=== PATIENT | male | born 1980 | race Caucasian/White ===

== ENCOUNTER 2024-02-26 11:21 | Emergency (ER) | payer SELFPAY ==
--- NOTE | 2024-02-26 11:24 | ED.GENMED ---
ED Provider Triage
<Betina Toledo PA-C - Last Filed: 02/26/24 11:27>
-
Patient seen by provider in Triage?: Seen in Triage
Attestation: A medical screening examination has been initiated by a qualified medical provider. Based on the assessment performed at this time, it has been determined that an emergent medical condition may exist and the patient has been informed
that further medical evaluation and possible additional diagnostic testing may be needed.
HPI: 43yoM here after stepping into his dump truck 2-3 hours. [place] a pop in his groin region. C/o R inner thigh, R testicle, and lower abd pain.
GENERAL: Alert , in no apparent distress
EYE: No visual abnormalities.
NECK: Trachea midline
ENT: No visible abnormalities.
LUNGS: No acute respiratory distress
NEUROLOGICAL: Alert and oriented
SKIN: Skin intact. No visible changes.
MUSCULOSKELETAL: Moving extremities normally
PSYCH: Normal and appropriate interaction.
This is a medical evaluation conducted in person to initiate diagnostic evaluation and provide initial therapeutics. Please see further documentation by the treating clinician.
R hip x-rays ordered.
History of Present Illness
<Betina Toledo PA-C - Last Filed: 02/26/24 11:27>
General
Chief Complaint: Musculo-Skeletal Complaint
Time Seen by Provider: 02/26/24 12:46
<Kevin Sanders DO - Last Filed: 02/26/24 16:18>
History of Present Illness
History of Present Illness:
TIME OF INITIAL ENCOUNTER: 12:45 PM
HPI:
The patient was stepping up into a dump truck today and had abrupt onset severe excruciating right thigh pain that radiates to the abdomen and right testicle. He reports that the testicle is tender to palpation as well. He did not have pain before
this injury today.
EXAM:
GENERAL: Well appearing but appears to be in moderate distress as he has trouble finding a comfortable position, elevated BMI, he is hypertensive
CERVICAL SPINE: Excellent AROM
HEAD: No evidence of craniofacial trauma
CHEST: No chest wall tenderness, normal heart sounds
LUNGS: Equal lung sounds, no respiratory distress
ABDOMEN: No peritoneal signs, very minimal lower abdominal discomfort with palpation
: Mild right-sided testicular tenderness
EXTREMITIES: Decreased active range of motion at the right lower extremity, medial mid thigh tenderness, no evidence for cellulitis
NEURO: Excellent strength all extremities, appropriate mental status, normal speech/language
NUMBER AND COMPLEXITY OF PROBLEMS ADDRESSED AT THE ENCOUNTER
� Chronic conditions affecting care: Is a smoker, high blood pressure
� Acute Exacerbation and/or Progression of Chronic Illness: This is an acute problem
� Differential Diagnosis includes: Hip flexor tear, thigh muscle tear/strain, testicular torsion possible but unlikely
AMOUNT AND/OR COMPLEXITY OF DATA TO BE REVIEWED AND ANALYZED
� I performed an independent evaluation of and my interpretation is:
EKG:
CT:
X-rays: X-rays of the pelvis and right hip are unremarkable
Laboratory Studies:
Other: Testicular ultrasound unremarkable
� Review of other/old records: The patient was seen here in 2020 with a dental abscess
� Clinical information was obtained by an independent historian: None needed
� Prescriptions/Medications Considered but not given:
� Further testing considered but not performed:
RISK OF COMPLICATIONS AND/OR MORBIDITY OR MORTALITY OF PATIENT MANAGEMENT
� Social determinants of health affecting care: Lives at home
� Discussion with other providers:
� Escalation of care including admission/observation vs risk of discharge considered: The patient did take tramadol earlier today. I have ordered a dose of Toradol IM. Plain film imaging unremarkable�will obtain ultrasound of
the testicle as well.
ANY OTHER UPDATES:
4:15 PM: The patient was febrile earlier and did receive Toradol. Temperature has improved. Testicular ultrasound, plain film imaging, and urinalysis unremarkable. The patient also reported some ear discomfort and we talked about the possibly of
a viral syndrome. I have also given the contact information for orthopedics to follow-up with given the ongoing rather severe pain at the right thigh.
Past History
<Betina Toledo PA-C - Last Filed: 02/26/24 11:27>
Past History
ED Past Medical History: None
ED Past Surgical History: None
Social History
Tobacco: Non-smoker
Alcohol: None
Drug: None
Phy Exam
<Kevin Sanders DO - Last Filed: 02/26/24 16:18>
Physical Exam
Physical Exam:
See HPI
Course
<Betina Toledo PA-C - Last Filed: 02/26/24 11:27>
Orders/Labs/Results
Orders:
Orders
02/26/24 11:27
Hip, Right 2-3 Views [CR Hip - RT w/wo Pel 2-3 Vw*] Urgent
Comment:
Reason For Exam: pain
Include a pelvis x-ray?: Yes
02/26/24 12:58
Ketorolac [Toradol] 30 mg IM NOW STA
US Scrotum Urgent
Comment:
Reason For Exam: R testic pain
02/26/24 14:15
Urinalysis Reflex To Culture Urgent
Date Specimen was Collected: 02/26/24
Time Specimen was Collected: 14:13
Vital Signs
Initial and Last Documented VS:
Initial Vital Signs
Temp Pulse Resp BP Pulse Ox
98.5 F 101 16 182/116 98
02/26/24 11:25 02/26/24 11:25 02/26/24 11:25 02/26/24 11:25 02/26/24 11:25
Last Documented Vital Signs
Temp Pulse Resp BP Pulse Ox
100.5 F H 108 16 132/78 98
02/26/24 16:09 02/26/24 14:06 02/26/24 14:06 02/26/24 14:06 02/26/24 14:06
<Kevin Sanders DO - Last Filed: 02/26/24 16:18>
Orders/Labs/Results
Orders:
Orders
02/26/24 11:27
Hip, Right 2-3 Views [CR Hip - RT w/wo Pel 2-3 Vw*] Urgent
Comment:
Reason For Exam: pain
Include a pelvis x-ray?: Yes
02/26/24 12:58
Ketorolac [Toradol] 30 mg IM NOW STA
US Scrotum Urgent
Comment:
Reason For Exam: R testic pain
02/26/24 14:15
Urinalysis Reflex To Culture Urgent
Date Specimen was Collected: 02/26/24
Time Specimen was Collected: 14:13
Vital Signs
Initial and Last Documented VS:
Initial Vital Signs
Temp Pulse Resp BP Pulse Ox
98.5 F 101 16 182/116 98
02/26/24 11:25 02/26/24 11:25 02/26/24 11:25 02/26/24 11:25 02/26/24 11:25
Last Documented Vital Signs
Temp Pulse Resp BP Pulse Ox
100.5 F H 108 16 132/78 98
02/26/24 16:09 02/26/24 14:06 02/26/24 14:06 02/26/24 14:06 02/26/24 14:06
<Kevin Sanders DO - Last Filed: 02/26/24 16:18>
*Critical Care Note
Total Time (30-74mins, 75-104mins- exclusive of procedures): Not Applicable
ED Attending Note
<Betina Toledo PA-C - Last Filed: 02/26/24 11:27>
-
Portions of this chart may have been created with voice recognition software.� Occasional wrong word or��sound alike� substitutions may have occurred due to the inherent limitations of voice recognition software.
Discharge Plan
Departure
Patient Disposition: Home (Routine Discharge)
Date of Disposition: 02/26/24
Time of Disposition: 16:15
Patient with high blood pressure during this ER visit?: Yes
Discharge Problem:
Muscle strain of right thigh
Instructions: Muscle Strain ED
Prescriptions:
No Action
amoxicillin-pot clavulanate 1 TABLET tablet
1 tab PO Q12 Qty: 10 0RF
acetaminophen [Tylenol] 325 MG capsule
325 mg PO TID PRN (Reason: Mild pain) Qty: 30 0RF
ibuprofen [Advil Liqui-Gel] 200 MG capsule
200 mg PO TID PRN (Reason: Mod sev pain) Qty: 30 0RF
Referrals:
Mele Sidhu DO [Family Provider] -
Silas Ash MD [Active] - Next open appointment
Activity Restrictions/Additional Instructions:
Take Tylenol and/or ibuprofen for fever. I also recommend the ibuprofen for pain of the left thigh to help decrease inflammation. The urinalysis does not show any signs of infection. Ultrasound of the testicles showed normal blood flow with no
other significant abnormality. X-rays of the right hip and pelvis are unremarkable. I have given the contact information for local orthopedist to follow-up with.
Interventions
Interventions:
*Risk Screen - Suicide Last Done: 02/26/24 11:25
*General Assessment Last Done: 02/26/24 11:25
*Neglect/Abuse Screening Last Done: 02/26/24 11:25
*ED COVID-19 Vaccine History Last Done: 02/26/24 11:48
ED-Musculoskeletal Assessment Last Done: 02/26/24 11:49
Discharge Date and Time
Print Language: YI
[2024-02-26 11:25] VITALS: BP 182/116
[2024-02-26] MEDS: TORADOL 30 MG IM (14:03)
[2024-02-26 14:06] VITALS: BP 132/78; BMI 44.4
[2024-02-26 14:26] LABS: Urine Albumin Negative (Neg - Trace); Urine Bilirubin Negative (Negative); Urine Character Clear (Clear); Urine Color Yellow; Urine Glucose Negative (Negative); Urine Ketone Negative (Negative); Urine Leukocyte Negative (Negative); Urine Nitrite Negative (Negative); Urine Occult Blood Negative (Negative); Urine Specific Gravity 1.015 (<1.030); Urine Urobilinogen Negative (Neg - 1+)
[2024-02-26 16:38] VITALS: BP 126/85
== END 2024-02-26 16:50 | disposition home or self-care (01) ==
LOC: EMR 11:21
PROVIDERS: EMERGENCY PHYSICIAN Emergency Medicine; FAMILY PHYSICIAN Family Medicine
DX: S76.911A Strain of unspecified muscles, fascia and tendons at thigh level, right thigh, initial encounter (principal); N50.82 Scrotal pain; V85.4XXA Person injured while boarding or alighting from special construction vehicle, initial encounter
CPT/HCPCS: 99284; 96372; 73502; 76870; 81003; 93976

== ENCOUNTER 2024-02-28 22:26 | Emergency (ER) | payer OTHER, SELFPAY ==
[2024-02-28 22:27] VITALS: BP 141/109
--- NOTE | 2024-02-28 23:41 | ED.GENMED ---
History of Present Illness
<MISTI Gibson - Last Filed: 02/29/24 06:08>
General
Chief Complaint: Musculo-Skeletal Complaint
Source: patient
Exam Limitations: none
Time Seen by Provider: 02/28/24 23:12
History of Present Illness
History of Present Illness:
Patient is a 43yo M w/ R groin injury dx in ED 2 days ago. Pt injured groin when stepping up into truck and heard/felt a pop. Reports severe medial R thigh pain that radiates into R testicle and lower abd w/ movement. Pt states he was given a pain
med shot in ED, fell asleep for 4 hrs, and discharged. Reports pain slowly came back once he went home. Reports he was told to continue current chronic pain regime (Tramadol & Ibu) and contact PCP for refills. States he has been continuing this
regime, taking more tramadol each day going from 1 to 3 pills, w/o relief. States pain was so severe today that he could not get up from sitting on porch. Reports PCP denied giving him refills. Pain is worst when standing up straight and has
started to radiate into R buttock. Admits to nausea and dizziness w/ certain movements that bring severe pain. Reports dark urine that comes out very slowly x2 days despite drinking 2 gal of water/day. Last BM was 4 days ago but does not have
sensation of needing to go.
Past History
<MISTI Gibson - Last Filed: 02/29/24 06:08>
Past History
ED Past Medical History: None
ED Past Surgical History: None
Social History
Tobacco: Non-smoker
Alcohol: None
Drug: None
Review of Systems
<MISTI Gibson - Last Filed: 02/29/24 06:08>
Review of Systems
Constitutional: Reports fatigue and chills; Denies fever
EENT: Denies sore throat or runny nose
Respiratory: Denies cough or trouble breathing
Cardiac: Denies chest pain or palpitations
ABD/GI: Reports nausea and constipated; Denies abdominal pain, vomiting or diarrhea
: Reports dark urine
Musculoskeletal: Reports muscle pain and muscle stiffness; Denies joint pain or back pain
Neurological: Denies dizzy, headache or numbness
Phy Exam
<MISTI Gibson - Last Filed: 02/29/24 06:08>
General Physical Exam
General Presentation: moderate distress
General age: appears stated age
General Skin: warm and dry
General Habitus: obese
General Mental: alert
Cardiovascular Exam
Cardiovascular Exam: regular rate/rhythm, no edema, no gallop and no murmur
Pulmonary Exam
Pulmonary Exam: lungs clear, no respiratory distress, no rales, no crackles, no rhonchi and no wheezing
Gastrointestinal Exam
Gastrointestinal Exam: normal bowel sounds, soft, no organomegaly and non distended
Palpation: left upper quadrant: Mild tenderness
Neurological Exam
Neurological Exam: alert, oriented x3, no sensory deficits and speech normal
Musculoskeletal Exam
Musculoskeletal Exam: neuro vasc intact and other (no bruising or erythema noted. R thigh non tender. ROM and strength limited due to pain. )
Course
<MISTI Gibson - Last Filed: 02/29/24 06:08>
Orders/Labs/Results
Orders:
Orders
02/29/24 00:00
0.9% Sodium Chloride 1000 ml [Nss] 1,000 ml IV BOLUS
02/29/24 00:01
CT Abd/Pel (IV only)-DH only Urgent
Comment:
Reason For Exam: right lower abd/groin pain
02/29/24 00:02
EKG [Electrocardiogram (*1)] Urgent
Reason for Study: Abdominal Pain
02/29/24 00:06
EKG- Treatment ONCE
02/29/24 00:41
Complete Blood Count/With Diff Urgent
Comprehensive Metabolic Panel Urgent
Lactic Acid Urgent
Lipase Urgent
PTT Urgent
Prothrombin Time Urgent
Troponin I Urgent
Urinalysis Reflex To Culture Urgent
Date Specimen was Collected: 02/29/24
Time Specimen was Collected: 00:29
Urine Microscopic Reflex Cult Urgent
Urine Culture Urgent
JMAEE Source: U
Specimen Description:
Date Specimen was Collected: 02/29/24
Time Specimen was Collected: 00:29
02/29/24 02:29
Mag Hydrox/Al Hydrox/Simeth [Maalox] 30 ml Phenobarb/Hyoscy/Atropine/Scop [] 10 ml PO NOW
02/29/24 02:33
Phenobarb/Hyoscy/Atropine/Scop [] 10 ml .ROUTE .STK-MED ONE
02/29/24 02:34
Mag Hydrox/Al Hydrox/Simeth [Maalox] 30 ml .ROUTE .STK-MED ONE
02/29/24 03:15
Fosfomycin [Monurol] 3 gm PO ONCE ONE
Magnesium Citrate [Citroma] 300 ml PO ONCE ONE
Abnormal Lab Results
02/29/24
00:41
WBC 13.6 H 10^3/uL
(4.8-10.8)
RBC 4.51 L 10^6/uL
(4.70-6.10)
Hct 38.4 L %
(39.0-52.0)
MPV 10.6 H fL
(7.4-10.4)
Abs Immat Gran (auto) 0.5 H 10^3/uL
(0-0.05)
Absolute Neuts (auto) 11.7 H 10^3/uL
(1.4-6.5)
Absolute Lymphs (auto) 0.4 L 10^3/uL
(1.2-3.4)
Absolute Monos (auto) 1.0 H 10^3/uL
(0.1-0.6)
Immature Gran % 3.4 H %
(0-0.5)
Neutrophils % 85.7 H %
(42.2-75.2)
Lymphocytes % 2.9 L %
(20.5-51.1)
PT 16.0 H Sec
(11.4-14.6)
APTT 39.5 H Sec
(23.4-35.0)
Sodium 133 L mmol/L
(135-145)
BUN 21 H mg/dl
(9-20)
Creatinine 1.4 H mg/dL
(0.7-1.3)
Glucose 165 H mg/dl
(70-99)
AST 60 H U/L
(17-59)
Total Protein 6.1 L g/dl
(6.3-8.2)
Albumin 3.4 L g/dl
(3.5-5.0)
Ur Occult Blood Reflex 3+ A
(Negative)
Urine RBC 3-6 A /HPF
(0-2)
Urine WBC (Reflex) 11-15 A /HPF
(0-5)
Urine Bacteria (Reflex) Many A
(Negative)
Urine Glucose 2+ A
(Negative)
Urine Albumin (Reflex) 1+ A
(Neg - Trace)
02/29/24 00:41
02/29/24 00:41
Vital Signs
Initial and Last Documented VS:
Initial Vital Signs
Temp Pulse Resp BP Pulse Ox
98.0 F 104 14 141/109 96
02/28/24 22:27 02/28/24 22:27 02/28/24 22:27 02/28/24 22:27 02/28/24 22:27
Last Documented Vital Signs
Temp Pulse Resp BP Pulse Ox
98.0 F 89 17 148/88 97
02/28/24 22:27 02/29/24 04:00 02/29/24 04:00 02/29/24 04:00 02/29/24 04:00
<Pedro Phillips, DO - Last Filed: 02/29/24 03:20>
Orders/Labs/Results
Orders:
Orders
02/29/24 00:00
0.9% Sodium Chloride 1000 ml [Nss] 1,000 ml IV BOLUS
02/29/24 00:01
CT Abd/Pel (IV only)-DH only Urgent
Comment:
Reason For Exam: right lower abd/groin pain
02/29/24 00:02
EKG [Electrocardiogram (*1)] Urgent
Reason for Study: Abdominal Pain
02/29/24 00:06
EKG- Treatment ONCE
02/29/24 00:41
Complete Blood Count/With Diff Urgent
Comprehensive Metabolic Panel Urgent
Lactic Acid Urgent
Lipase Urgent
PTT Urgent
Prothrombin Time Urgent
Troponin I Urgent
Urinalysis Reflex To Culture Urgent
Date Specimen was Collected: 02/29/24
Time Specimen was Collected: 00:29
Urine Microscopic Reflex Cult Urgent
Urine Culture Urgent
JAMEE Source: U
Specimen Description:
Date Specimen was Collected: 02/29/24
Time Specimen was Collected: 00:29
02/29/24 02:29
Mag Hydrox/Al Hydrox/Simeth [Maalox] 30 ml Phenobarb/Hyoscy/Atropine/Scop [] 10 ml PO NOW
02/29/24 02:33
Phenobarb/Hyoscy/Atropine/Scop [] 10 ml .ROUTE .STK-MED ONE
02/29/24 02:34
Mag Hydrox/Al Hydrox/Simeth [Maalox] 30 ml .ROUTE .STK-MED ONE
02/29/24 03:15
Fosfomycin [Monurol] 3 gm PO ONCE ONE
Magnesium Citrate [Citroma] 300 ml PO ONCE ONE
Abnormal Lab Results
02/29/24
00:41
WBC 13.6 H 10^3/uL
(4.8-10.8)
RBC 4.51 L 10^6/uL
(4.70-6.10)
Hct 38.4 L %
(39.0-52.0)
MPV 10.6 H fL
(7.4-10.4)
Abs Immat Gran (auto) 0.5 H 10^3/uL
(0-0.05)
Absolute Neuts (auto) 11.7 H 10^3/uL
(1.4-6.5)
Absolute Lymphs (auto) 0.4 L 10^3/uL
(1.2-3.4)
Absolute Monos (auto) 1.0 H 10^3/uL
(0.1-0.6)
Immature Gran % 3.4 H %
(0-0.5)
Neutrophils % 85.7 H %
(42.2-75.2)
Lymphocytes % 2.9 L %
(20.5-51.1)
PT 16.0 H Sec
(11.4-14.6)
APTT 39.5 H Sec
(23.4-35.0)
Sodium 133 L mmol/L
(135-145)
BUN 21 H mg/dl
(9-20)
Creatinine 1.4 H mg/dL
(0.7-1.3)
Glucose 165 H mg/dl
(70-99)
AST 60 H U/L
(17-59)
Total Protein 6.1 L g/dl
(6.3-8.2)
Albumin 3.4 L g/dl
(3.5-5.0)
Ur Occult Blood Reflex 3+ A
(Negative)
Urine RBC 3-6 A /HPF
(0-2)
Urine WBC (Reflex) 11-15 A /HPF
(0-5)
Urine Bacteria (Reflex) Many A
(Negative)
Urine Glucose 2+ A
(Negative)
Urine Albumin (Reflex) 1+ A
(Neg - Trace)
02/29/24 00:41
02/29/24 00:41
Vital Signs
Initial and Last Documented VS:
Initial Vital Signs
Temp Pulse Resp BP Pulse Ox
98.0 F 104 14 141/109 96
02/28/24 22:27 02/28/24 22:27 02/28/24 22:27 02/28/24 22:27 02/28/24 22:27
Last Documented Vital Signs
Temp Pulse Resp BP Pulse Ox
98.0 F 89 17 148/88 97
02/28/24 22:27 02/29/24 04:00 02/29/24 04:00 02/29/24 04:00 02/29/24 04:00
<MISTI Gibson - Last Filed: 02/29/24 06:08>
MDM/Problems Addressed
Differential Diagnosis Includes:
groin strain, tendon/ligament tear, rhabdomyolysis
<MISTI Gibson - Last Filed: 02/29/24 06:08>
*Critical Care Note
Total Time (30-74mins, 75-104mins- exclusive of procedures): Not Applicable
<Pedro Phillips DO - Last Filed: 02/29/24 03:20>
Update Note
Update Note:
CT abdomen and pelvis with IV contrast
IMPRESSION:
No hydronephrosis, nephrolithiasis, or pyelonephritis. Mild bladder wall thickening, which may be due to cystitis.
No bowel obstruction or inflammation. Appendix is normal. No free air or free fluid. 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
ED Attending Note
<MISTI Gibson - Last Filed: 02/29/24 06:08>
-
Portions of this chart may have been created with voice recognition software.� Occasional wrong word or��sound alike� substitutions may have occurred due to the inherent limitations of voice recognition software.
<Pedro Phillips DO - Last Filed: 02/29/24 03:20>
ED Attending Note
Patient seen and examined by attending physician: Yes
ED Attending Note:
Pleasant 43-year-old male presents with right groin injury. He was seen in the emergency department and discharged for this injury. He states that the pain has not improving. Patient has been taking tramadol and ibuprofen. He denies fever,
chills, nausea or vomiting. Patient states that the pain is reproducible with movement. Patient does state that his last bowel movement was 4 days ago despite eating normally. Denies chest pain or shortness of breath. Patient was seen in
conjunction with the PA student. I have reviewed and agree with the history and treatment plan presented. On my independent physical exam, patient is awake, alert, and oriented x3, minimal acute distress. Heart is regular rate and rhythm. Lungs
are clear to auscultation bilaterally without wheezes rales or rhonchi present abdomen soft and nontender but distended. No CVA tenderness noted. Moves all 4 extremities. Positive straight leg raising test on the right.
CT scan is essentially negative.
Will give magnesium citrate Monuril. Patient received hydration in the emergency department. He will follow-up with his family doctor.
Discharge Plan
Departure
Patient Disposition: Home (Routine Discharge)
Date of Disposition: 02/29/24
Time of Disposition: 03:18
Patient with high blood pressure during this ER visit?: Yes
Condition: Good
Discharge Problem:
Groin pain
Instructions: Muscle Strain (DC), Muscle and Bone Pain (DC), BLOOD PRESSURE
Prescriptions:
New
diclofenac sodium 75 mg tablet,delayed release (DR/EC)
75 mg PO BID Qty: 10 0RF
No Action
amoxicillin-pot clavulanate 1 TABLET tablet
1 tab PO Q12 Qty: 10 0RF
acetaminophen [Tylenol] 325 MG capsule
325 mg PO TID PRN (Reason: Mild pain) Qty: 30 0RF
ibuprofen [Advil Liqui-Gel] 200 MG capsule
200 mg PO TID PRN (Reason: Mod sev pain) Qty: 30 0RF
Referrals:
Mele Sidhu, DO [Family Provider] -
Activity Restrictions/Additional Instructions:
It was a pleasure meeting you and taking part in your care. We hope for your continued healing and wellness.
Please read discharge instructions in their entirety. However, they are for general education and may not describe your exact diagnosis at discharge. Information on your ER visit and medical conditions were discussed with you along with appropriate
follow up information...
If indicated, please take your medications as instructed and indicated on discharge paperwork.
Please schedule a follow up appointment as directed. Call to schedule an appointment
Please return to the emergency department with ANY change in, persisting, or worsening of symptoms. If any of your symptoms do not improve, or persist, or become more severe within 6-12 hours, please return to the emergency department for further
care.
Please return to the emergency department if you develop a headache, neck pain/stiffness, fever greater than 100.4F, chest pain, shortness of breath, persistent nausea, vomiting, slurred speech, difficulty walking, numbness/tingling, weakness, signs
of infection or any other symptoms that are worrisome to you.
If you have any questions or concerns please do not hesitate to call the Hospital at .
Interventions
Interventions:
*Risk Screen - Suicide Last Done: 02/28/24 22:27
*General Assessment Last Done: 02/28/24 22:27
*Neglect/Abuse Screening Last Done: 02/28/24 22:27
ED- Fall Risk Assessment Last Done: 02/29/24 00:06
*ED COVID-19 Vaccine History Last Done: 02/29/24 00:06
*Nursing Disposition Last Done: 02/29/24 04:02
ED-Musculoskeletal Assessment Last Done: 02/29/24 00:06
Discharge Date and Time
Discharge Date/Time: 02/29/24 03:37
Print Language: FRENCH
[2024-02-29 00:06] VITALS: BMI 46.2
[2024-02-29] MEDS: NSS 1000 IV (00:40)
[2024-02-29 01:06] LABS: % Basophils 0.3 % (0-2); % Eosinophils 0.2 % (0-6); % Immature Granulocytes 3.4 % (0-0.5); % Lymphocytes 2.9 % (20.5-51.1); % Monocytes 7.5 % (1.7-9.3); % Neutrophils 85.7 % (42.2-75.2); Absolute Immature Granulocytes 0.5 10^3/uL (0-0.05); Absolute Lymphocytes 0.4 10^3/uL (1.2-3.4); Absolute Neutrophils 11.7 10^3/uL (1.4-6.5); Hematocrit 38.4 % (39.0-52.0); Hemoglobin 13.4 g/dL (13.0-18.0); Mean Corp Hgb Conc. 34.9 g/dL (33.0-37.0); Mean Corpuscular Hgb 29.7 pg (27.0-31.0); Mean Corpuscular Volume 85.1 fL (80.0-94.0); Mean Platelet Volume 10.6 fL (7.4-10.4); Nucleated Red Blood Cells % 0 % (-); Platelet Count 145 10^3/uL (130-400); Red Blood Cell Count 4.51 10^6/uL (4.70-6.10); Red Cell Dist. Width 13.7 % (11.5-14.5); White Blood Cell Count 13.6 10^3/uL (4.8-10.8)
[2024-02-29 01:14] LABS: Lactic Acid 0.9 mmol/L (0.7-2.0); Urine Albumin 1+ (Neg - Trace); Urine Bilirubin Negative (Negative); Urine Character Slightly Cloudy (Clear); Urine Color Amber; Urine Glucose 2+ (Negative); Urine Ketone Negative (Negative); Urine Leukocyte Negative (Negative); Urine Nitrite Negative (Negative); Urine Occult Blood 3+ (Negative); Urine Specific Gravity 1.025 (<1.030); Urine Urobilinogen 1+ (Neg - 1+)
[2024-02-29 01:15] LABS: ALT (SGPT) 44 U/L (0-50); AST (SGOT) 60 U/L (17-59); Albumin 3.4 g/dl (3.5-5.0); Alkaline Phosphatase 82 U/L (38-126); Blood Urea Nitrogen 21 mg/dl (9-20); Calcium 9.3 mg/dl (8.4-10.2); Carbon Dioxide 22 mmol/L (22-30); Chloride 101 mmol/L (98-107); Glucose 165 mg/dl (70-99); INR 1.27; Lipase 29 U/L (23-300); Potassium 4.2 mmol/L (3.5-5.1); Sodium 133 mmol/L (135-145); Total Bilirubin 0.9 mg/dl (0.2-1.3); Total Protein 6.1 g/dl (6.3-8.2); eGFR > 60.00
[2024-02-29 01:16] LABS: APTT 39.5 Sec (23.4-35.0)
[2024-02-29 01:27] LABS: Troponin I < 0.012 ng/ml
[2024-02-29 01:36] LABS: Urine Amorphous Seen; Urine Mucus Many; Urine Squamous Cell >30 /LPF (Few)
[2024-02-29 01:37] LABS: Urine Bacteria Many (Negative); Urine Granular Cast >15 /LPF (0)
[2024-02-29 01:40] LABS: Urine White Cell Cast 0-2 /LPF
[2024-02-29 02:00] VITALS: BP 132/88
[2024-02-29] MEDS: MAALOX 40 PO (02:35)
[2024-02-29 04:00] VITALS: BP 148/88
[2024-02-29] MEDS: MONUROL 3 GM PO (04:02)
[2024-02-29] MEDS: CITROMA 300 ML PO (04:02)
== END 2024-02-29 03:37 | disposition home or self-care (01) ==
LOC: EMR 22:26
PROVIDERS: EMERGENCY PHYSICIAN Student in an Organized Health Care Education/Training Program; FAMILY PHYSICIAN Family Medicine
DX: R10.31 Right lower quadrant pain (principal)
CPT/HCPCS: 99284; 74177; 80053; 81003; 81015; 83605; 83690; 84484; 85025; 85610; 85730; 87086; 93005; Q9967